=== PATIENT | male | born 1975 | race African-American/Black ===

== ENCOUNTER 2017-03-26 10:56 | Inpatient (IN) ==
[2017-03-26] MEDS ORDERED: STERILE WATER INJ. INJ ONE (11:02)
[2017-03-26] MEDS ORDERED: GEODON IM ONE (11:02)
[2017-03-26] MEDS ORDERED: NS 1,000 ML IV ONE ×3 (11:45→14:01)
--- NOTE | 2017-03-26 11:57 | PROVIDER DOCUMENTATION ---
[id number] Abuse/Overdose - General Chief Complaint: Altered Mental Status Stated Complaint: AMS Time Seen by Provider: 03/26/17 11:02 Source: family, police, EMS Allergies/Adverse Reactions: Allergies Allergy/AdvReac Type Severity Reaction Status Date / Time No Known Allergies Allergy Verified 01/18/14 08:25 Home Medications: Home Medication List Medication Instructions Recorded Confirmed Last Taken Type LISINOpril [Prinivil] 20 mg PO DAILY 10/16/13 01/18/14 01/18/14 03:00 History Paroxetine [Paxil] 20 mg PO DAILY 10/16/13 01/18/14 01/18/14 03:00 History - History of Present Illness-Drug/Alcohol Nature of Presenting Problem: 41 YO BM presents via ambulance after being found by police being combative. Pt talking in the room to family members that are not present, crying and shouting. Unable to get information from pt. Pt cousin arrived to the ED, states that he has been using Ice. Saw him yesterday, and was acting strangely but has worsened since he saw him yesterday. This episode of drinking or use began:: unsure Severity: reports: severe Psychiatric Complaints: reports: agitated, altered mental status, hallucinating , rapid pulse Any injuries associated with this episode of intoxication?: No - Substance Abuse Substance Use: reports: amphetamines - Overdose Suicide Risk Assessment: male sex, rational thought loss (hallucinations) Clinician's estimation of suicide risk?: high risk Review of Systems - Adult - REVIEW OF SYSTEMS - ADULT Constitutional: denies: chills, fever Past History - Adult - PAST MEDICAL HISTORY-ADULT Review of Records: reports: Old Records Reviewed, Nursing Assessment Review Cardiovascular: reports: HTN Respiratory: reports: denies history Gastrointestinal: reports: diverticulosis Genitourinary: reports: denies history Musculoskeletal: reports: denies history Neurological: reports: denies history Endocrine/Immune: reports: denies history Other Conditions: reports: denies history - PRIOR SURGERIES/PROCEDURES Surgical/Procedure History: reports: bowel surgery, appendectomy - FAMILY HISTORY Family History: reviewed, not pertinent Physical Exam-General - PHYSICAL EXAM-ADULT Initial Vital Signs Reviewed: Yes (tachycardic) - CONSTITUTIONAL General Appearance: alert - EYES Eyes: pink conjunctivae. negative: PERRL/EOMI (pinpoint non reactive pupils), sclera injected, scleral icterus - HEAD, EARS, NOSE, MOUTH & THROAT HENMT: normocephalic/atraumatic, moist mucous membranes - NECK Neck: full range of motion, supple, normal inspection Progress - PLAN OF CARE/RESULTS Progress/Plan/Lab Results: Vital Signs - 8 hr 03/26/17 10:57 03/26/17 13:08 Pulse Rate 127 H 89 Respiratory Rate 16 16 Blood Pressure 136/88 104/073 O2 Sat by Pulse Oximetry 98 99 Laboratory Results - last 24 hr 03/26/17 03/26/17 03/26/17 12:00 12:00 12:08 WBC RBC Hgb Hct MCV MCH MCHC RDW Std Deviation Plt Count MPV Immature Gran % (Auto) Neut % (Auto) Lymph % (Auto) [place] % (Auto) Eos % (Auto) Baso % (Auto) Immature Gran # (Auto) Neut # (Auto) Lymph # (Auto) [place] # (Auto) Eos # (Auto) Baso # (Auto) Segmented Neutrophils Lymphocytes Monocytes Anisocytosis Microcytosis Sodium 142 Potassium 3.0 L Chloride 105 Carbon Dioxide 24 L Anion Gap 14 BUN 19 Creatinine 2.0 H Estimated GFR/1.73 m2 37 BUN/Creatinine Ratio 10 Glucose 90 Calculated Osmolality 285 Calcium 9.6 Total Bilirubin 2.70 H AST 27 ALT 24 Alkaline Phosphatase 106 Creatine Kinase 509 H Creatine Kinase Index 1.2 CK-MB (CK-2) 6.06 H Troponin T Total Protein 7.1 Albumin 4.2 Globulin 3.0 Albumin/Globulin Ratio 1.0 Urine Source CATH Urine Color YELLOW Urine Clarity SLIGHTLY CLOUDY A Urine pH 6.5 Ur Specific [place] 1.015 Urine Protein 1+(30 mg/dL) A Urine Ketones 1+(Small) A Urine Blood 1+ A Urine Nitrite NEGATIVE Urine Bilirubin NEGATIVE Urine Urobilinogen 1+(1 mg/dL) Urine Microscopic RBC 10-20 A Urine WBC 1+ A Urine Microscopic WBC 20-40 A Ur Epithelial Cells <10 Urine Bacteria 2+ Urine Glucose NEGATIVE Urine Opiates Screen NONE DETECTED Ur Oxycodone Screen NONE DETECTED Urine Methadone Screen NONE DETECTED Ur Barbituates Screen NONE DETECTED Ur Tricyclics Screen NONE DETECTED Ur Phencyclidine Scrn NONE DETECTED Ur Amphetamines Screen PRESUMPTIVE POSITIVE A U Methamphetamines Scrn PRESUMPTIVE POSITIVE A Urine MDMA Screen PRESUMPTIVE POSITIVE A U Benzodiazepines Scrn NONE DETECTED Urine Cocaine Screen NONE DETECTED U Cannabinoids Screen NONE DETECTED 03/26/17 03/26/17 12:08 12:08 WBC 9.53 RBC 5.91 Hgb 14.8 Hct 41.4 L MCV 70.1 L MCH 25.0 L MCHC 35.7 RDW Std Deviation 15.6 H Plt Count 288 MPV 10.0 Immature Gran % (Auto) 0.1 Neut % (Auto) 80.5 H Lymph % (Auto) 12.5 L [place] % (Auto) 6.6 Eos % (Auto) 0.1 Baso % (Auto) 0.2 Immature Gran # (Auto) 0.01 Neut # (Auto) 7.67 H Lymph # (Auto) 1.19 L [place] # (Auto) 0.63 H Eos # (Auto) 0.01 Baso # (Auto) 0.02 Segmented Neutrophils 74 Lymphocytes 22 Monocytes 4 Anisocytosis OCCASIONAL Microcytosis OCCASIONAL Sodium Potassium Chloride Carbon Dioxide Anion Gap BUN Creatinine Estimated GFR/1.73 m2 BUN/Creatinine Ratio Glucose Calculated Osmolality Calcium Total Bilirubin AST ALT Alkaline Phosphatase Creatine Kinase Creatine Kinase Index CK-MB (CK-2) Troponin T < 0.010 Total Protein Albumin Globulin Albumin/Globulin Ratio Urine Source Urine Color Urine Clarity Urine pH Ur Specific [place] Urine Protein Urine Ketones Urine Blood Urine Nitrite Urine Bilirubin Urine Urobilinogen Urine Microscopic RBC Urine WBC Urine Microscopic WBC Ur Epithelial Cells Urine Bacteria Urine Glucose Urine Opiates Screen Ur Oxycodone Screen Urine Methadone Screen Ur Barbituates Screen Ur Tricyclics Screen Ur Phencyclidine Scrn Ur Amphetamines Screen U Methamphetamines Scrn Urine MDMA Screen U Benzodiazepines Scrn Urine Cocaine Screen U Cannabinoids Screen Orders Category Date Time Status CHEST-PORTABLE [RAD] Stat Exams 03/26/17 11:58 Completed CBC WITH DIFF [HEME] Stat Lab 03/26/17 12:08 Completed CK PROFILE [SP CHEM] Stat Lab 03/26/17 12:08 Completed COMPREHENSIVE METABOLIC PANEL [CHEM] Stat Lab 03/26/17 12:08 Completed TROPONIN T Stat Lab 03/26/17 12:08 Completed URINE CULTURE [RM] Routine Lab 03/26/17 12:30 Or[address]UG SCREEN [address] Stat Lab 03/26/17 12:00 Completed ua [URINALYSIS PL W/POSS RFLX CULT] [URINALYSIS] Stat Lab 03/26/17 12:00 Completed 0.9% Sodium Chloride Inj [Ns] 1,000 ml Med 03/26/17 13:04 Discontinued .ROUTE As Directed 0.9% Sodium Chloride Inj [Ns] 1,000 ml Med 03/26/17 11:45 Discontinued IV 999 mls/hr 0.9% Sodium Chloride Inj [Ns] 1,000 ml Med 03/26/17 13:12 Active IV 999 mls/hr Potassium Chloride 20 Meq/Swi Med 03/26/17 13:27 Active 20 meq in 100 ml IV ONCE Water, Sterile Inj [Sterile Water Inj] Med 03/26/17 11:02 Discontinued 1.2 ml INJ NOW ONE Ziprasidone [Geodon] Med 03/26/17 11:02 Discontinued 10 mg IM NOW ONE EKG [EKG] Stat Ther 03/26/17 11:44 Ordered Result Diagrams: 03/26/17 12:08 03/26/17 12:08 - CONSULTS/PCP/HOSPITALIST Notification #1 *Consult/PCP/Hospitalist*: Dr. Aguilar Time Discussed: 13:45 Consult Disposition: Will see in ED, Admit Departure - Departure Date of Disposition Decision: 03/26/17 Time of Disposition Decision: 13:45 DIAGNOSIS: Substance abuse, Renal insufficiency, Renal insufficiency Disposition: ADMITTED INPATIENT 09 Certified Medical Emergency: Emergent Condition: Stable Referrals and Follow-Ups: None,PCP [Primary Care Provider] - - Critical Care Note This patient required my direct & personal management of CC.: Yes Total Time (mins): 35 Critical Care Statement: This patient required my direct personal management to treat or rule out processes, the absence of which, could potentiallly result in sudden, clinically significant life or limb threatening deterioration.
[2017-03-26 12:19] LABS: BASO% 0.2 % (0.0-0.8); EOS# 0.01 X1000 (0.0-0.7); EOS% 0.1 % (0.0-10.0); HEMATOCRIT 41.4 % (42.0-52.0); HEMOGLOBIN 14.8 g/dL (14.0-18.0); IMM GRAN# 0.01 X1000 (0.0-0.04); IMM GRAN% 0.1 % (0.0-0.5); LYMPH# 1.19 X1000 (1.2-3.4); LYMPH% 12.5 % (20.5-51.1); MANUAL DIFF NEEDED? YES; MCHC 35.7 g/dL (33-37); MCV 70.1 FL (81-99); MONO# 0.63 X1000 (0.11-0.59); MONO% 6.6 % (1.7-9.3); NEUT% 80.5 % (42.2-75.2); PLT 288 X1000 (130-400); RBC 5.91 XMIL (4.7-6.1)
[2017-03-26 12:21] LABS: BILIRUBIN URINE NEGATIVE (NEGATIVE); BLOOD URINE 1+ (NEGATIVE); CLARITY SLIGHTLY CLOUDY (CLEAR); COLOR YELLOW; GLUCOSE URINE NEGATIVE (NEGATIVE); LEUKOCYTES URINE 1+ (NEGATIVE); NITRITE URINE NEGATIVE (NEGATIVE); PH URINE 6.5; PROTEIN URINE 1+(30 mg/dL) mg/dL (NEGATIVE); SP GRAVITY URINE 1.015; UROBILINOGEN URINE 1+(1 mg/dL)
[2017-03-26 12:26] LABS: UR AMPHETAMINES QUAL PRESUMPTIVE POSITIVE (NONE DETECT); UR BARBITUATES QUAL NONE DETECTED (NONE DETECT); UR BENZODIAZEPIN QUAL NONE DETECTED (NONE DETECT); UR CANNABINOIDS QUAL NONE DETECTED (NONE DETECT); UR COCAINE QUAL NONE DETECTED (NONE DETECT); UR MDMA QUAL PRESUMPTIVE POSITIVE (NONE DETECT); UR METHADONE QUAL NONE DETECTED (NONE DETECT); UR METHAMPHETAMINE QUAL PRESUMPTIVE POSITIVE (NONE DETECT); UR OPIATES QUAL NONE DETECTED (NONE DETECT); UR OXYCODONE QUAL NONE DETECTED (NONE DETECT); UR PCP QUAL NONE DETECTED (NONE DETECT); UR TCA QUAL NONE DETECTED (NONE DETECT)
[2017-03-26 12:28] LABS: URINE SOURCE CATH
[2017-03-26 12:30] LABS: URINE CULTURE PL NEEDED? YES; URINE EPITHELIAL CELLS <10 /HPF (<10); URINE WBC 20-40 /HPF (<10)
[2017-03-26 12:33] LABS: ALBUMIN 4.2 g/dL (3.5-5.0); CALCIUM 9.6 mg/dL (8.8-10.2); TOTAL BILIRUBIN 2.7 mg/dL (0.20-1.00); TOTAL PROTEIN 7.1 g/dL (6.3-8.3)
--- NOTE | 2017-03-26 12:37 | Diag Imaging Result Doc PS360 ---
EXAM: CHEST-PORTABLE HISTORY: overdose, snoring respirations TECHNIQUE: Erect AP portable at 1205 COMMENT: There is no evidence of acute cardiac or pulmonary disease. Compared to 01/18/2014 there has been no significant change in the appearance of the chest. IMPRESSION: No acute disease. Electronically signed by Wero Kincaid 03/26/2017 12:35 PM
[2017-03-26 12:41] LABS: LYMPHS 22 % (21-51); MONO 4 % (1-9)
[2017-03-26] MEDS ORDERED: NS 1,000 ML ONE (13:04)
[2017-03-26 13:10] LABS: CK INDEX 1.2 (0.0-2.5); CK-MB 6.06 ng/mL (0.0-5.0)
[2017-03-26] MEDS ORDERED: POTASSIUM CHLORIDE 20 MEQ/SWI 20 MEQ/100 ML IVPB IV ONE (13:27)
--- NOTE | 2017-03-26 13:49 | ED EKG INTERP ---
This chart was entered by Oriana Rock Scribe, acting as scribe for Harmony Copeland MD. EKG Interpretation - EKG Time of EKG reading by physician:: 13:40 EKG Read and Signed by:: Harmony Copeland EKG Interpretation (*Must complete 3 of following elements*): Abnormal (ST elevation, consider early repolarization, pericarditis, or injury. nonspecific ST and T wave abnormality.) Rate: 81 Rhythm: normal sinus rhythm Comments: minimal voltage criteria for LVH, may be normal variant This chart was documented by the indicated scribe, (Oriana Rock Scribe) and accurately reflects the services I performed and decisions made by me, Harmony Copeland MD, as attested by the provider's signature.
--- NOTE | 2017-03-26 13:49 | EKG Report ---
Test Performed on : 03/26/2017 1:40:18 PM Test Reason : AMS Blood Pressure : / mmHG Vent. Rate : 081 BPM Atrial Rate : 081 BPM P-R Int : 188 ms QRS Dur : 092 ms QT Int : 406 ms P-R-T Axes : 053 063 037 degrees QTc Int : 471 ms Normal sinus rhythm. Minimal voltage criteria for LVH, may be normal variant ST elevation, consider early repolarization, pericarditis, or injury Nonspecific ST and T wave abnormality Abnormal ECG When compared with ECG of 18-JAN-2014 09:52, Vent. rate has increased BY 29 BPM Nonspecific T wave abnormality now evident in Lateral leads QT has lengthened Unconfirmed Result
[2017-03-26] MEDS ORDERED: M.V.I.-12 10 ML, FOLIC ACID 1 MG, MAGNESIUM SULFATE 1 GM, THIAMINE 100 MG in NS 1,000 ML IV ONE (17:00)
[2017-03-26 17:11] LABS: ALBUMIN 3.7 g/dL (3.5-5.0); POTASSIUM 3.7 mmol/L (3.5-5.1); TOTAL BILIRUBIN 2.2 mg/dL (0.20-1.00); TOTAL PROTEIN 6.4 g/dL (6.3-8.3)
[2017-03-26] MEDS ORDERED: ZOFRAN IV PRN (18:35)
[2017-03-26] MEDS ORDERED: TYLENOL PO PRN (18:35)
[2017-03-26] MEDS ORDERED: PROTONIX IV SCH (18:45)
[2017-03-26] MEDS ORDERED: ROCEPHIN 1 GM/NS 1 GM/50 ML IVPB IV SCH (18:45)
[2017-03-26] MEDS ORDERED: SODIUM CHLORIDE 0.9% INJ SCH (18:45)
[2017-03-26] MEDS: NS 1,000 ML IV SCH ×2 (19:10→22:20)
[2017-03-27 06:19] LABS: HEMATOCRIT 40.4 % (42.0-52.0); HEMOGLOBIN 14.3 g/dL (14.0-18.0); MCH 24.9 PG (27-31); MCHC 35.4 g/dL (33-37); MCV 70.4 FL (81-99); MPV 10.2 FL (7.4-10.4); RBC 5.74 XMIL (4.7-6.1)
[2017-03-27 06:41] LABS: AGAP 10; ALBUMIN 3.4 g/dL (3.5-5.0); ALKALINE PHOSPHATASE 90 U/L (32-122); BUN 12 mg/dL (8-22); CALCIUM 8.8 mg/dL (8.8-10.2); CHLORIDE 105 mmol/L (98-107); COSMO 274; GOT 22 U/L (10-34); GPT 19 U/L (10-44); POTASSIUM 3.2 mmol/L (3.5-5.1); SODIUM 138 mmol/L (136-145); TCO2 23 mmol/L (25-35); TOTAL PROTEIN 5.9 g/dL (6.3-8.3)
[2017-03-27 14:19] VITALS: BP 136/96
--- NOTE | 2017-03-27 14:45 | PROGRESS NOTE ---
DATE: 03/27/2017 SUBJECTIVE: The patient is awake, alert, calm today. He denies any chest pain , palpitations, any GI issues. OBJECTIVE: Vital Signs: Blood pressure is 123/75 with heart rate of 70, respirations are 18, temperature is 98.6 degrees with room air saturation of 96-100%. Cardiovascular : Regular rate and rhythm, S1, S2 appreciated. Pulmonary: Breath sounds are clear. No increased work of breathing noted. Gastrointestinal: Abdomen soft, nontender, nondistended. Bowel sounds in all 4 quadrants. Extremities: No clubbing, cyanosis, or edema. Calves are nontender. Pulses are palpable x4. Neurologic: He is alert, oriented x3. DIAGNOSTICS: WBC is 6.5 with hemoglobin 14.3, hematocrit 40.4, platelets of 277 ,000. Sodium is 138, potassium 3.2, BUN 12, creatinine 1 with a glucose of 70, total bilirubin is 2.3 with total CPK trending down to 311. Microbiology. Urine culture reveals no growth. ASSESSMENT: This is a 41-year-old gentleman who is sitting up in the bed in no distress. 1. Polysubstance overdose. Polysubstance abuse. 2. Altered mental status, resolved 3. Acute kidney injury, resolved 4. Rhabdomyolysis, improving PLAN: The patient is calm, he is cooperative, he assist in his care. He is alert and oriented. He is very tearful at events yesterday leading up to admission. He does request to go to rehab. We will continue with his IV hydration, his medication regimen and will consult social services assistant to look at rehab placement. Further treatments pending hospital course. Dictated by KEVIN Lee for Jw Aguilar MD cc: KEVIN Lee MD [facility]
--- NOTE | 2017-03-27 17:27 | HISTORY AND PHYSICAL ---
CHIEF COMPLAINT: Altered mental status. HISTORY OF PRESENT ILLNESS: This is a 41-year-old, male, who presented to the emergency room after being found by police. He was combative. On initial presentation he was crying and shouting, talking to people that were not present in the room. A family member did come through the emergency room and stated that the patient had been using ICE and that he had been this way for approximately 24 hours, although the time in the ER seemed to be worse the day before. He would not give any past history. He was given Geodon in the emergency room, and at the time of my exam the patient is asleep. He will rouse to pain, but dozes back off. PAST MEDICAL HISTORY: Unknown. PAST SURGICAL HISTORY: Unknown. SOCIAL HISTORY: Unknown. ALLERGIES: Unknown. HOME MEDICATIONS: Unknown. REVIEW OF SYSTEMS: Unable to obtain. PHYSICAL EXAMINATION: GENERAL: This is a 41-year-old, gentleman, who is lying in the bed sedated and in no distress. VITAL SIGNS: Blood pressure is 117/82 with a heart rate of 66, respirations are 20, temperature is 97.6 degrees with room air saturations of 100%. HEENT: Head is normocephalic, atraumatic. Pupils are 3 mm, equal, round, react to light. Sclerae are anicteric. Mucous membranes are dry. NECK: Supple with trachea midline. CARDIOVASCULAR: Regular rate and rhythm. S1, S2 appreciated. PULMONARY: Breath sounds are clear. No increased work of breathing noted. GASTROINTESTINAL: Abdomen is soft and nondistended with bowel sounds in all 4 quadrants. EXTREMITIES: No clubbing, cyanosis, or edema. Pulses are palpable x4. NEUROLOGIC: He is sedated. DIAGNOSTICS: WBC is 9.5 with a hemoglobin of 14.8, hematocrit 41.4 and platelets of 288. Sodium is 140, potassium 3.7, BUN 15, creatinine 1.4 with a glucose of 82. CPK is 432 with a CK-MB of 6.06. Urine drug screen is positive for amphetamines, methamphetamines and MDMA. Chest x-ray revealed no acute disease. ASSESSMENT: 1. Altered mental status. 2. Polysubstance use and abuse. 3. Renal insufficiency. 4. Rhabdomyolysis. PLAN: He will be admitted to ICU, placed on telemetry. Neuro checks every hour. We will give IV hydration. We will trend labs. Further treatments pending hospital course. Dictated by KEVIN Lee for Jw Aguilar MD cc: KEVIN Lee MD
--- NOTE | 2017-04-05 15:03 | DISCHARGE SUMMARY ---
ADMISSION DATE: 03/26/2017 DISCHARGE DATE: 03/27/2017 DISCHARGE DIAGNOSES: 1. Altered mental status resolved secondary to polysubstance abuse. 2. Polysubstance use and abuse. 3. Acute renal insufficiency resolved. 4. Rhabdomyolysis resolved. CONSULTATIONS: Meredith Rojas. HISTORY OF PRESENT ILLNESS: Patient is a 41-year-old male who presented to the emergency room after being found combative and disoriented by the police. He was admitted overnight. After whatever substance he took has worn off patient is much more awake, alert, oriented. He is pleasant to talk with. Therefore he will be discharged home. DISPOSITION: The patient will be discharged home as he has no suicidal ideations. Discussed with patient the importance of continuing to follow up with Og Rojas to get further assistance with his substance abuse issues. Patient notes that he will consider this. He will be discharged home. TIME SPENT: 35 minutes was spent in discharge planning. cc: Jw Aguilar MD
== END 2017-03-27 19:30 | disposition home or self-care (01) ==
LOC: P.ED 10:56 → ICU 14:40 → P.ICU 14:48
PROVIDERS: ATTEND Family Medicine